=== PATIENT | female | born 1980 | race Caucasian/White ===

== ENCOUNTER 2016-12-18 16:32 | Emergency (ER) ==
[2016-12-18 16:38] VITALS: BP 148/84
--- NOTE | 2016-12-18 16:59 | PROVIDER DOCUMENTATION ---
HPI-Cardiac General - General Source: patient - History of Present Illness-Cardiac Quality of Pain: reports: none Severity in ED: moderate Onset/Duration: other (7 months) Timing: still present Palpitation Quality: fast/pounding heart beat History of arrythmia: reports: none Nitro Today/Relief: reports: no nitro taken today Aspirin Treatment Today: reports: no aspirin today Similar Symptoms Previously?: No Recently Seen Here or By Another Healthcare Provider: No <Paulie Camara - Last Filed: 12/18/16 17:13> <Vaughn Hatch - Last Filed: 12/18/16 17:14> - General Chief Complaint: General Adult Stated Complaint: PALPATATIONS Time Seen by Provider: 12/18/16 16:58 Allergies/Adverse Reactions: Patient Allergies Allergy/AdvReac Type Severity Reaction Status Date / Time No Known Allergies Allergy Verified 07/17/16 18:25 Home Medications: Home Medication List Medication Instructions Recorded Confirmed Last Taken Type No Home Medications 12/18/16 12/18/16 Unknown History - History of Present Illness-Cardiac Nature of Presenting Problem: Pt is a 36 yof that presents to er with cc of palpitations x 7 months happening more frequent today. Anthony cp,sob,n,v. (Paulie Camara) Review of Systems - Adult - REVIEW OF SYSTEMS - ADULT Constitutional: denies: chills, fever, fatique Eyes: reports: no symptoms reported Ears, Nose, Mouth & Throat: denies: ear pain, sinus problem, nose pain, loose teeth, throat pain Cardiovascular: reports: palpitations. denies: chest pain, irregular heart rate , orthopnea Respiratory: reports: no symptoms reported Gastrointestinal: reports: no symptoms reported Genitourinary: reports: no symptoms reported Musculoskeletal: reports: no symptoms reported Integumentary: reports: no symptoms reported Neurological: reports: no symptoms reported Psychiatric: reports: no symptoms reported Endocrine: reports: no symptoms reported Hematologic/Lymphatic: reports: no symptoms reported Allergic/Immunologic: reports: no symptoms reported All Other Systems: Reviewed and Negative <Paulie Camara - Last Filed: 12/18/16 17:13> Past History - Adult - PAST MEDICAL HISTORY-ADULT Review of Records: reports: Nursing Assessment Review Major Childhood Illnesses: reports: denies history Cardiovascular: reports: denies history Respiratory: reports: denies history Gastrointestinal: reports: denies history Obstetrical/Gynecological: reports: denies history Genitourinary: reports: denies history Musculoskeletal: reports: denies history Neurological: reports: denies history Psychiatric: reports: anxiety (generalized anxiety disorder) Endocrine/Immune: reports: Diabetes (gestational) Other Conditions: reports: denies history - PRIOR SURGERIES/PROCEDURES Surgical/Procedure History: reports: none - IMMUNIZATION STATUS Childhood Immunizations: See Nurse Assessment Flu Vaccine: See Nurse Assessment - FAMILY HISTORY Family History: reviewed, not pertinent - SOCIAL HISTORY Smoking: cigarettes, less than 1 pack/day Provider spent 3-5 mins advising pt. on dangers of tobacco.: Discussed manners to quit use, and f/u contacts for add'l counseling. Substance Use: none/never <Paulie Camara - Last Filed: 12/18/16 17:13> Physical Exam-General - PHYSICAL EXAM-ADULT Initial Vital Signs Reviewed: Yes - CONSTITUTIONAL General Appearance: alert, no apparent distress, anxious - EYES Eyes: PERRL/EOMI - HEAD, EARS, NOSE, MOUTH & THROAT HENMT: moist mucous membranes, normal ENT inspection, TMs normal, pharynx normal - NECK Neck: non-tender, full range of motion, supple, normal inspection - RESPIRATORY Respiratory: chest non-tender, lungs clear, normal breath sounds, no pleuratic chest pain, no respiratory distress, no accessory muscle use - CARDIOVASCULAR Cardiovascular: no edema, no JVD, no murmur, tachycardia - GASTROINTESTINAL (ABDOMEN) Abdominal Exam: normal bowel sounds, non tender, soft, no organomegaly, no pulsatile mass - MUSCULOSKELETAL Extremity: normal range of motion, non-tender - SKIN Integumentary: normal color, normal turgor, warm/dry - PSYCHIATRIC Psych/Mental Status: normal thought content, normal thought process, oriented x 3, anxious <Paulie Camara - Last Filed: 12/18/16 17:13> Progress - EKG 1 Time of EKG reading by physician:: 16:48 EKG Read and Signed by:: Vaughn Hatch EKG Interpretation (*Must complete 3 of following elements*): Abnormal Rate: 85 Rhythm: sinus wiht sinus arrhythmai with occ pvc and fusion complexes [place]: normal QRS: normal <Pualie Camara - Last Filed: 12/18/16 17:13> <Vaughn Hatch - Last Filed: 03/14/17 17:14> - PLAN OF CARE/RESULTS Progress/Plan/Lab Results: Orders Category Date Time Status EKG [EKG] Stat Ther 12/18/16 16:39 Ordered Vital Signs - 24 hr 12/18/16 16:33 Temperature 98 F Pulse Rate 107 H Respiratory 18 Rate Blood Pressure 148/84 O2 Sat by Pulse 100 Oximetry (Paulie Camara) Departure - Departure Time of Disposition Order: 17:12 Certified Medical Emergency: Emergent <Paulie Camara - Last Filed: 12/18/16 17:13> - Departure Time of Disposition Order: 17:14 Certified Medical Emergency: Emergent <Vaughn Hatch - Last Filed: 12/18/16 17:14> - Departure DIAGNOSIS: Palpitations Disposition: HOME 01 Condition: Stable Additional Instructions: FOLLOW UP WITH PCP IF YOU DO NOT HAVE ONE CALL PHYSICIAN REFERRAL LINE BELOW. FOLLOW UP WITH [facility] FOR STRESS TEST ED Follow Up Instructions: You have been treated by a care provider in the Emergency Department. These instructions are being provided to you so you can have an understanding of how to care for yourself upon discharge. Upon discharge from the Emergency Department, you are responsible for making arrangements for follow-up care by a physician of your choice. Take all prescribed medications as directed. Return to the Emergency Department immediately for any new or worsening symptoms. You may call the Physician Referral phone number at [phone] to obtain a list of Physicians who are taking new patients. Referrals: None,PCP [Primary Care Provider] - Pako Moses MD [STAFF PHYSICIAN] - Attestation - Scribe Verification/Attestation Scribe:: Paulie Camara Acting as Scribe for:: Vaughn Hatch Scribe documention review:: This chart was documented by a scribe and accurately reflects the service the provider performed and the decisions made by the provider. <Paulie Camara - Last Filed: 12/18/16 17:13> Physician Attestation
--- NOTE | 2016-12-18 17:12 | EKG Report ---
Test Performed on : 12/18/2016 4:48:51 PM Test Reason : palpitations anxiety Blood Pressure : / mmHG Vent. Rate : 085 BPM Atrial Rate : 085 BPM P-R Int : 142 ms QRS Dur : 076 ms QT Int : 354 ms P-R-T Axes : 067 082 075 degrees QTc Int : 421 ms Sinus rhythm. with sinus arrhythmia. with occasional premature ventricular complexes. and fusion comp lexes Otherwise normal ECG When compared with ECG of 18-DEC-2016 16:47, (Unconfirmed) fusion complexes are now present Unconfirmed Result
== END 2016-12-18 17:32 | disposition home or self-care (01) ==
LOC: P.ED 16:32
DX: R00.2 Palpitations (principal); R94.31 Abnormal electrocardiogram [ECG] [EKG]; R00.0 Tachycardia, unspecified; F17.210 Nicotine dependence, cigarettes, uncomplicated; Z71.6 Tobacco abuse counseling
CPT/HCPCS: 93005; 99282